=== PATIENT | female | born 1960 | race Two or more races ===

== ENCOUNTER 2023-01-07 08:23 | Emergency (ER) | payer BC ==
[~2023-01-07] VITALS: Ht 160 cm; Wt 61.5 kg
--- NOTE | 2023-01-07 20:00 | EKG ---
[facility] [address] [facility] [place] [id number] Signed Normal sinus rhythm Anteroseptal infarct , age undetermined Abnormal ECG No previous ECGs available Confirmed by Julio Ramirez MD () on 01/07/2023 8:00:31 PM Electronically Signed By: JULIO RAMIREZ MD 01/07/23 2000 PATIENT NAME: FLORINA COMBS Electrocardiogram DATE OF : 62 PHYSICIAN: JULIO RAMIREZ MD REPORT #: [id number] REPORT IS CONFIDENTIAL AND NOT TO BE RELEASED WITHOUT AUTHORIZATION
== END 2023-01-07 12:10 | disposition short-term general hospital (02) ==
LOC: ED 08:23
DX: S72.011A Unspecified intracapsular fracture of right femur, initial encounter for closed fracture (principal); Z88.5 Allergy status to narcotic agent; Z88.7 Allergy status to serum and vaccine; Z20.822 Contact with and (suspected) exposure to COVID-19; W18.30XA Fall on same level, unspecified, initial encounter
CPT/HCPCS: 36415; 71045; 73502; 80053; 85025; 87502; 93005; 93010; 96374; 96375; 96376; 99285-25; C9803; J1170; J2405; J7030; U0003